=== PATIENT | female | born 1975 | race Caucasian/White ===

== ENCOUNTER 2016-02-25 10:18 | Emergency (ER) | payer BC ==
--- NOTE | 2016-02-25 11:17 | Emergency Department Report ---
Chief Complaint: Vaginal Bleeding Stated Complaint: X9 WEEKS/BLEEDING - HPI History of Present Illness: Patient states 9-weeks and having brownish-red vaginal discharge x 2 days. Reports mild abdominal cramps yesterday. States OB US at ED after a slip and fall 5 weeks ago confirmed . LMP 12/07/15 - Exam Vital Signs: Vital Signs 02/25/16 10:43 Temperature 98.5 F Pulse Rate 90 Respiratory 18 Rate Blood Pressure 131/86 O2 Sat by Pulse 99 Oximetry Physical Exam: General: NAD. MSE screening note: Focused history and physical exam performed. Due to findings the following was ordered: ED Medical Decision Making - Medical Decision Making Patient to see MD in main ED. ED Disposition for MSE Condition: Stable
[2016-02-25 11:43] LABS: Basophils % (Auto) 0.9 % (0.0-1.8); Eosinophils % (Auto) 1.5 % (0.0-4.3); Hematocrit 43.1 % (30.3-42.9); Hemoglobin 14.3 gm/dl (10.1-14.3); Mean Corpuscular HGB Conc 33 % (30-34); Mean Corpuscular Hemoglobin 30 pg (28-32); Mean Corpuscular Volume 89 fl (79-97); Platelet Count 247 K/mm3 (140-440); Red Blood Count 4.85 M/mm3 (3.65-5.03); Red Cell Distribution Width 14.4 % (13.2-15.2); White Blood Count 10.5 K/mm3 (4.5-11.0)
[2016-02-25 11:56] LABS: Anion Gap 21 mmol/L; BUN/Creatinine Ratio 21.66; Blood Urea Nitrogen 13 mg/dL (7-17); Calcium 8.7 mg/dL (8.4-10.2); Carbon Dioxide 18 mmol/L (22-30); Chloride 102.4 mmol/L (98-107); Glucose 130 mg/dL (65-100); Potassium 4.5 mmol/L (3.6-5.0); Sodium 137 mmol/L (137-145)
[2016-02-25 12:43] LABS: Bacteria,Urine 1+ /HPF (Negative); Bilirubin,Urine NEG (Negative); Blood,Urine LG (Negative); Ketones,Urine NEG (Negative); Leukocyte Esterase,Urine TR (Negative); Mucus,Urine 2+ /HPF; Nitrite,Urine NEG (Negative); Urobilinogen,Urine < 2.0 mg/dL (<2.0)
--- NOTE | 2016-02-25 14:02 | Ultrasound Report ---
ULTRASOUND OB LESS THAN 14 WEEKS ULTRASOUND OB TRANSVAGINAL HISTORY: Vaginal bleeding during . TECHNIQUE: Transabdominal and transvaginal ultrasound with color and spectral doppler interrogation. The uterus measures 8 x 4 x 5 cm. An intrauterine gestational sac is identified with average diameter measuring 17.1 mm. This correlates with a 6 week, 4 day . A small yolk sac is identified but no convincing pole or heart tones at this time. The cervix is unremarkable. No subchorionic hemorrhage. The right ovary measures 3.7 x 2.6 x 2.3 cm and contains a 2.1 cm cyst. The left ovary is not visualized. No pelvic fluid collection. IMPRESSION: Intrauterine gestational sac containing a small yolk sac is identified. No convincing pole or heart rate at this time. This probably represents a normal early intrauterine . A blighted ovum is not excluded. Close followup is recommended.
--- NOTE | 2016-02-25 18:40 | Emergency Department Report ---
ED Female HPI - General Chief complaint: Vaginal Bleeding Stated complaint: X9 WEEKS/BLEEDING Time Seen by Provider: 02/25/16 18:11 Source: patient Mode of arrival: Ambulatory Limitations: No Limitations - History of Present Illness Initial comments: 41-year-old female with no significant past medical history presents to the hospital complaining of vaginal bleeding and . She is approximately 9 weeks . She began having intermittent spotting one week ago that worsened last night and today. Blood was initially brown but now bright red. Intermittent crampy lower abdominal pain medicines has due to the intensity. No aggravating or alleviating factors. Patient denies lightheadedness, dizziness, or dyspnea syncope. Patient had O2 sat at approximately 4 weeks secondary to fall an IUP identified. She has an appointment my [facility] next week. This is patient's third she has 1 child and history of one miscarriage. - Related Data Home Medications Medication Instructions Recorded Confirmed Last Taken Acetaminophen [Tylenol] 325 mg PO Q6HR PRN 05/02/15 06/01/15 Unknown Previous Rx's Medication Instructions Recorded Last Taken Type HYDROcodone/APAP 5-325 [Sims 1 each PO Q6HR PRN #30 tablet 06/01/15 Unknown Rx 5/325] Ibuprofen [Motrin] 800 mg PO Q8HR PRN #60 tablet 06/01/15 Unknown Rx Allergies Allergy/AdvReac Type Severity Reaction Status Date / Time No Known Allergies Allergy Verified 05/02/15 13:48 ED Review of Systems ROS: Stated complaint: X9 WEEKS/BLEEDING Other details as noted in HPI Comment: All other systems reviewed and negative Other: Constitutional: No fevers chills Eyes: No eye pain visual changes ENT: No ear pain or throat pain Neck: Denies pain Respiratory: Denies cough wheezing shortness of breath Cardiovascular: Denies chest pain, palpitations, syncope GI: Denies nausea, vomiting, diarrhea : Denies dysuria Musculoskeletal: Denies back pain Skin: Denies rash, lesions, erythema Neurologic: Denies headache, numbness, weakness Psychiatric: Denies suicidal ideation, hallucinations ED Past Medical Hx - Past Medical History Hx Hypertension: No Hx Congestive Heart Failure: No Hx Diabetes: No Hx Deep Vein Thrombosis: No Hx Renal Disease: No Hx Sickle Cell Disease: No Hx Seizures: No Hx Asthma: No Hx COPD: No Hx HIV: No - Social History Smoking Status: Never Smoker - Medications Home Medications: Home Medications Medication Instructions Recorded Confirmed Last Taken Type Acetaminophen [Tylenol] 325 mg PO Q6HR PRN 05/02/15 06/01/15 Unknown History HYDROcodone/APAP 5-325 [Sims 1 each PO Q6HR PRN #30 tablet 06/01/15 Unknown Rx 5/325] Ibuprofen [Motrin] 800 mg PO Q8HR PRN #60 tablet 06/01/15 Unknown Rx ED Physical Exam - General Limitations: No Limitations - Other Other exam information: General: No limitations, patient is alert in no acute distress Head exam: Atraumatic, normocephalic Eyes exam: Normal appearance, pupils equal reactive to light, extraocular movements intact ENT: Moist mucous membrane, normal oropharynx Neck exam: Normal inspection, full range of motion, no meningismus nontender Respiratory exam: Clear to auscultation bilateral, no wheezes, rales, crackles Cardiovascular: Normal rate and rhythm, normal heart sounds Abdomen: Soft, nondistended, and nontender, with normal bowel sounds, no rebound, or guarding : Positive blood in vault, cervical os closed, no CMT or adnexal tenderness Extremity: Full range of motion normal inspection no deformity Back: Normal Inspection, full range of motion, no tenderness Neurologic: Alert, oriented x3, cranial nerves intact, no motor or sensory deficit Psychiatric: normal affect, normal mood Skin: Warm, dry, intact ED Course Vital Signs 02/25/16 10:43 Temperature 98.5 F Pulse Rate 90 Respiratory 18 Rate Blood Pressure 131/86 O2 Sat by Pulse 99 Oximetry - Reevaluation(s) Reevaluation #1: 02/25/16 18:40 Patient did not require pain medication ED Medical Decision Making - Lab Data Result diagrams: 02/25/16 11:33 02/25/16 11:33 Lab Results 02/25/16 02/25/16 02/25/16 Range/Units 11:33 11:33 11:33 WBC 10.5 (4.5-11.0) K/mm3 RBC 4.85 (3.65-5.03) M/mm3 Hgb 14.3 (10.1-14.3) gm/dl Hct 43.1 H (30.3-42.9) % MCV 89 (79-97) fl MCH 30 (28-32) pg MCHC 33 (30-34) % RDW 14.4 (13.2-15.2) % Plt Count 247 (140-440) K/mm3 Lymph % (Auto) 30.1 (13.4-35.0) % [place] % (Auto) 8.0 H (0.0-7.3) % Eos % (Auto) 1.5 (0.0-4.3) % Baso % (Auto) 0.9 (0.0-1.8) % Lymph # 3.2 (1.2-5.4) K/mm3 [place] # 0.8 (0.0-0.8) K/mm3 Eos # 0.2 (0.0-0.4) K/mm3 Baso # 0.1 (0.0-0.1) K/mm3 Seg Neutrophils % 59.5 (40.0-70.0) % Seg Neutrophils # 6.2 (1.8-7.7) K/mm3 Carbon Dioxide 18 L (22-30) mmol/L BUN 13 (7-17) mg/dL Creatinine 0.6 L (0.7-1.2) mg/dL Estimated GFR > 60 ml/min BUN/Creatinine Ratio 21.66 % Glucose 130 H (65-100) mg/dL Calcium 8.7 (8.4-10.2) mg/dL HCG, Quant 7919 H (0-4) mIU/mL Urine Color (Yellow) Urine Turbidity (Clear) Urine pH (5.0-7.0) Ur Specific [place] (1.003-1.030) Urine Protein (Negative) mg/dL Urine Glucose (UA) (Negative) mg/dL Urine Ketones (Negative) mg/dL Urine Blood (Negative) Urine Nitrite (Negative) Urine Bilirubin (Negative) Urine Urobilinogen (<2.0) mg/dL Ur Leukocyte Esterase (Negative) Urine WBC (Auto) (0.0-6.0) /HPF Urine RBC (Auto) (0.0-6.0) /HPF U Epithel Cells (Auto) (0-13.0) /HPF Urine Bacteria (Auto) (Negative) /HPF Urine Mucus /HPF Blood Type Antibody Screen Ord Rhogam Gestat Weeks WEEKS 02/25/16 02/25/16 Range/Units 12:15 12:19 WBC (4.5-11.0) K/mm3 RBC (3.65-5.03) M/mm3 Hgb (10.1-14.3) gm/dl Hct (30.3-42.9) % MCV (79-97) fl MCH (28-32) pg MCHC (30-34) % RDW (13.2-15.2) % Plt Count (140-440) K/mm3 Lymph % (Auto) (13.4-35.0) % [place] % (Auto) (0.0-7.3) % Eos % (Auto) (0.0-4.3) % Baso % (Auto) (0.0-1.8) % Lymph # (1.2-5.4) K/mm3 [place] # (0.0-0.8) K/mm3 Eos # (0.0-0.4) K/mm3 Baso # (0.0-0.1) K/mm3 Seg Neutrophils % (40.0-70.0) % Seg Neutrophils # (1.8-7.7) K/mm3 Carbon Dioxide (22-30) mmol/L BUN (7-17) mg/dL Creatinine (0.7-1.2) mg/dL Estimated GFR ml/min BUN/Creatinine Ratio % Glucose (65-100) mg/dL Calcium (8.4-10.2) mg/dL HCG, Quant (0-4) mIU/mL Urine Color Yellow (Yellow) Urine Turbidity Clear (Clear) Urine pH 6.0 (5.0-7.0) Ur Specific [place] 1.026 (1.003-1.030) Urine Protein 30 mg/dl (Negative) mg/dL Urine Glucose (UA) Neg (Negative) mg/dL Urine Ketones Neg (Negative) mg/dL Urine Blood Lg (Negative) Urine Nitrite Neg (Negative) Urine Bilirubin Neg (Negative) Urine Urobilinogen < 2.0 (<2.0) mg/dL Ur Leukocyte Esterase Tr (Negative) Urine WBC (Auto) 8.0 H (0.0-6.0) /HPF Urine RBC (Auto) 58.0 (0.0-6.0) /HPF U Epithel Cells (Auto) 10.0 (0-13.0) /HPF Urine Bacteria (Auto) 1+ (Negative) /HPF Urine Mucus 2+ /HPF Blood Type O POSITIVE Antibody Screen Negative Ord Rhogam Gestat Weeks Rh pos WEEKS Sodium 137, potassium 4.5, chloride 102.4, - Radiology Data Radiology results: report reviewed Transvaginal/OB ultrasound: Positive IUP, positive yolk sac, no pole possible blighted ovum - Medical Decision Making Plan to discharge patient home with diagnosis of threatened miscarriage. Patient informed unable to rule out blighted ovum and possible miscarriage and follow-up with be important. - Differential Diagnosis miscarriage, threatened miscarriage, ectopic Critical Care Time: No Critical care attestation.: If time is entered above; I have spent that time in minutes in the direct care of this critically ill patient, excluding procedure time. ED Disposition Clinical Impression: Threatened Disposition: DISCHARGED TO HOME OR SELFCARE Is pt being admited?: No Does the pt Need Aspirin: No Condition: Stable Instructions: Threatened Miscarriage (ED) Additional Instructions: Return if bleeding increases, severe pain, lightheadedness, dizziness, or passing out. Otherwise follow-up with the [facility] to see if you're baby hormone which is currently 7919 is increasing. You were also provided a copy of the ultrasound report Referrals: [facility] [Provider Group] - 3-5 Days Time of Disposition: 18:45 Print Language: SRI LANKAN
[2016-02-25 18:49] VITALS: BP 121/85
== END 2016-02-25 19:31 | disposition home or self-care (01) ==
LOC: ED 10:18
DX: O20.0 Threatened abortion (principal); Z3A.09 9 weeks gestation of pregnancy
CPT/HCPCS: 36415; 76801; 76817; 80048; 81001; 84702; 85025; 86850; 86900; 86901